=== PATIENT | male | born 1970 | race Caucasian/White ===

== ENCOUNTER → 2024-09-16 06:17 | Day surgery (SDC) | payer OTHER, SELFPAY | LOC: GI 06:17 | PROVIDERS: ATTENDING PHYSICIAN Internal Medicine Gastroenterology; FAMILY PHYSICIAN Family Medicine | DX: Z12.11 Encounter for screening for malignant neoplasm of colon (principal); D12.3 Benign neoplasm of transverse colon; K63.89 Other specified diseases of intestine; K64.8 Other hemorrhoids; K64.4 Residual hemorrhoidal skin tags | CPT/HCPCS: 45385; 88305 ==

== ENCOUNTER → 2024-09-27 14:51 | Outpatient (REF) | payer OTHER, SELFPAY | LOC: HWRAD 14:51 | PROVIDERS: ATTENDING PHYSICIAN Internal Medicine Gastroenterology; FAMILY PHYSICIAN Internal Medicine | DX: K63.9 Disease of intestine, unspecified (principal) | CPT/HCPCS: 74177; Q9967 ==